=== PATIENT | female | born 1990 | race Caucasian/White ===

== ENCOUNTER 2018-01-15 19:49 | Emergency (ER) | payer SELFPAY ==
[~2018-01-15] VITALS: Ht 172.7 cm; Wt 131.2 kg
[2018-01-15 20:15] LABS: HEMATOCRIT 41.3 % (36.0-46.0); HEMOGLOBIN 14.4 G/DL (11.9-15.5); MCH 30.4 PG (29.0-34.0); MCHC 34.9 G/DL (30.0-36.0); MCV 87.3 FL (83-99); PLATELET COUNT 234 K/uL (156-360); RBC DIS.WIDTH-CV 12.1 % (11.8-14.6); RBC DIS.WIDTH-SD 38.9 % (39-53); RED BLOOD COUNT 4.73 M/uL (3.80-5.20); WHITE BLOOD COUNT 9.5 K/uL (4.1-10.2)
[2018-01-15 20:24] LABS: CHLORIDE 102 mEq/L (99-109); POTASSIUM 3.9 mEq/L (3.7-5.4); SODIUM 137 mEq/L (136-147)
[2018-01-15 20:26] LABS: GLUCOSE 303 mg/dL (70-99)
[2018-01-15 20:30] LABS: CREATININE 0.7 mg/dL (0.6-1.3)
[2018-01-15 20:31] LABS: UREA NITROGEN (BUN) 5 mg/dL (9-23)
[2018-01-15 20:34] LABS: GFR ESTIMATE (CALCULATED) > 59 mL/min/
[2018-01-15] MEDS ORDERED: BACTROBAN OINTM22 GM TP (20:48)
[2018-01-15] MEDS ORDERED: VALTREX1000 MG PO (20:48)
[2018-01-15 21:30] LABS: QUANTITATIVE HCG < 4.0 MIU/ML
[2018-01-15 21:41] VITALS: BP 116/65
== END 2018-01-15 21:42 | disposition home or self-care (01) ==
LOC: EME 19:49
DX: B02.9 Zoster without complications (principal); E11.65 Type 2 diabetes mellitus with hyperglycemia; E66.01 Morbid (severe) obesity due to excess calories; Z91.14 Patient's other noncompliance with medication regimen; F17.200 Nicotine dependence, unspecified, uncomplicated
CPT/HCPCS: 80048; 84702; 85027; 99281; 99284

== ENCOUNTER 2018-06-05 17:54 | Emergency (ER) | payer SELFPAY ==
[~2018-06-05] VITALS: Ht 172.7 cm; Wt 129.0 kg
[~2018-06-05 17:54] MED LIST: BACTROBAN OINTM22 GM TP; VALTREX1000 MG PO
[2018-06-05 18:20] LABS: APPEARANCE SL.HAZY ((CLEAR)); BILIRUBIN NEGATIVE; BLOOD LARGE; COLOR YELLOW ((YELLOW)); GLUCOSE (STRIP) >=500; KETONES NEGATIVE; LEUKOCYTES MODERATE; NITRITE NEGATIVE; PROTEIN (STRIP) 30; SPECIFIC GRAVITY 1.035 (1.000-1.030); UROBILINOGEN 0.2 MG/DL (0.2-1.0)
[2018-06-05 18:24] LABS: BACTERIA RARE /HPF; EPITHELIAL CELLS 1+ /HPF; MUCUS NONE SEEN /LPF; RED BLOOD CELLS 20-30 /HPF (0-5); UCUL ADDED? YES; WHITE BLOOD CELLS 15-20 /HPF (0-5)
[2018-06-05 19:00] LABS: HEMATOCRIT 40.4 % (36.0-46.0); HEMOGLOBIN 14.1 G/DL (11.9-15.5); MCH 30.4 PG (29.0-34.0); MCHC 34.9 G/DL (30.0-36.0); MCV 87.1 FL (83-99); PLATELET COUNT 279 K/uL (156-360); RBC DIS.WIDTH-SD 38.5 % (39-53); RED BLOOD COUNT 4.64 M/uL (3.80-5.20)
[2018-06-05 19:22] LABS: ALBUMIN 3.9 g/dL (3.2-4.8)
[2018-06-05 19:23] LABS: CHLORIDE 103 mEq/L (99-109); POTASSIUM 3.9 mEq/L (3.7-5.4); SODIUM 135 mEq/L (136-147)
[2018-06-05 19:25] LABS: GLUCOSE 376 mg/dL (70-99); TOTAL PROTEIN 7.1 g/dL (6.4-8.3)
[2018-06-05 19:27] LABS: TOTAL BILIRUBIN 0.2 mg/dL (0.0-1.0)
[2018-06-05 19:28] LABS: ALKALINE PHOSPHATASE 122 IU/L (3-129)
[2018-06-05 19:29] LABS: CREATININE 0.7 mg/dL (0.6-1.3); GFR ESTIMATE (CALCULATED) > 59 mL/min/
[2018-06-05 19:30] LABS: AST (GOT) 14 IU/L (2-34); UREA NITROGEN (BUN) 5 mg/dL (9-23)
[2018-06-05 19:31] LABS: ALT (GPT) 19 IU/L (3-49)
[2018-06-05 19:32] LABS: LIPASE 23 U/L (1.0-51.0)
[2018-06-05 19:57] LABS: QUANTITATIVE HCG < 4.0 MIU/ML
[2018-06-05 20:49] LABS: SOURCE SWAB
[2018-06-05] MEDS ORDERED: KEFLEX500 MG PO (21:44)
[2018-06-05] MEDS ORDERED: PYRIDIUM200 MG PO (21:44)
[2018-06-05 22:05] LABS: CANDIDA DNA PROBE POSITIVE; GARDNERELLA DNA PROBE POSITIVE; TRICHOMONAS DNA PROBE NEGATIVE
[2018-06-05 22:18] VITALS: BP 161/89
== END 2018-06-05 22:29 | disposition home or self-care (01) ==
LOC: EME 17:54
PROVIDERS: Physician Assistant
DX: N39.0 Urinary tract infection, site not specified (principal); N89.8 Other specified noninflammatory disorders of vagina; E11.9 Type 2 diabetes mellitus without complications; F17.200 Nicotine dependence, unspecified, uncomplicated
CPT/HCPCS: 74176; 80053; 81003; 83690; 84702; 85027; 87086; 87210; 87480; 87491; 87510; 87591; 87660; 99281; 99285; J0696; J1885; J3010